=== PATIENT | female | born 1935 | race Caucasian/White ===

== ENCOUNTER 2018-09-21 18:57 | Emergency (ER) | payer MEDICARE ==
[2018-09-21] MEDS ORDERED: ONDANSETRON HCL 4 MG/2 ML SOL IV ONE (19:21)
[2018-09-21] MEDS ORDERED: SODIUM CHLORIDE 0.9% 500 ML 500 ML IV ONE (19:21)
[2018-09-21] MEDS ORDERED: ONDANSETRON HCL 4 MG/2 ML SOL ONE (19:25)
[2018-09-21 19:32] VITALS: TEMP 97.1
[2018-09-21 20:01] LABS: BASOPHILS % (AUTO) 0 % (0-3); EOSINOPHILS % (AUTO) 0 % (0-9); HEMATOCRIT 51 % (35-47); HEMOGLOBIN 15.9 gm/dl (12.0-15.5); LYMPHOCYTES % (AUTO) 13.2 % (10-50); MEAN CORPUSCULAR HEMOGLOBIN 28.3 pg (27.0-32.0); MEAN CORPUSCULAR HGB CONC 31.3 gm/dl (32.0-36.0); MEAN CORPUSCULAR VOLUME 91 fL (81-99); MONOCYTES % (AUTO) 8.1 % (0-12); NEUTROPHILS % (AUTO) 77.9 % (37-80)
[2018-09-21 20:15] LABS: ALBUMIN 3.7 gm/dl (3.4-5.0); BILIRUBIN,TOTAL 0.4 mg/dl (0.2-1.0); CALCIUM 8.9 mg/dl (8.5-10.1); CARBON DIOXIDE 28.1 mEq/L (21-32); CREATININE 1.23 mg/dl (0.60-1.00); CRP INFLAMMATORY 0.1 mg/dl (0.00-0.33); POTASSIUM 4.2 mMol/L (3.5-5.1); TOTAL PROTEIN 7.6 gm/dl (6.4-8.2)
[2018-09-21 22:23] VITALS: O2SAT 94
[2018-09-21 22:24] LABS: APPEARANCE,URINE Clear; BILIRUBIN,URINE NEGATIVE (NEGATIVE); COLOR,URINE Yellow; GLUCOSE, URINE (UA) NEGATIVE (NEGATIVE); KETONES,URINE NEGATIVE (NEGATIVE); LEUKOCYTE ESTERASE ,URINE 1+ (NEGATIVE); NITRATE,URINE NEGATIVE (NEGATIVE); OCCULT BLOOD,URINE TRACE LYSED (NEG-TRACE); PH,URINE 5.5; UROBILINOGEN,URINE 0.2 (0.2-1.0 EU)
[2018-09-21 22:37] LABS: BACTERIA TRACE (< 1+); CRYSTALS NEGATIVE (0-3 AVE/HPF); EPITHELIAL CELLS 0-2 (SQUAMOUS); WBC,URINE 20-30 (0-5AV/HPF)
[2018-09-21] MEDS ORDERED: METRONIDAZOLE 250 MG TAB PO ONE (22:46)
[2018-09-21] MEDS ORDERED: SULFAMETHOXAZOLE/TRIMETHOPRI 800/160 MG PO ONE (22:46)
[2018-09-21] MEDS ORDERED: SULFAMETHOXAZOLE/TRIMETHOPRI 800/160 MG ONE (22:55)
[2018-09-21] MEDS ORDERED: METRONIDAZOLE 250 MG TAB ONE (22:55)
[2018-09-21 23:06] VITALS: BP 143/86; PULSE 92; RESP 16
== END 2018-09-21 23:30 | disposition home or self-care (01) | DRG 312 ==
LOC: ED 18:57
DX: R55 Syncope and collapse (principal); N39.0 Urinary tract infection, site not specified; K52.9 Noninfective gastroenteritis and colitis, unspecified; E86.0 Dehydration; R42 Dizziness and giddiness; I44.0 Atrioventricular block, first degree
CPT/HCPCS: 74177; 80053; 81001; 83690; 85025; 86140; 87088; 93005; 96365; 96374; 99284; 99285; J2405; Q9967; A9270-GY